=== PATIENT | female | born 1955 | race Caucasian/White ===

== ENCOUNTER 2017-10-12 07:45 | Inpatient (IN) | payer OTHER ==
[2017-10-05 14:17] LABS: BASOPHILS % (AUTO) 0.8 % (0.0-2.0); EOSINOPHILS % (AUTO) 2.9 % (1.0-6.0); HEMATOCRIT 40.4 % (36-46); HEMOGLOBIN 13.7 g/dL (12.0-16.0); LYMPHOCYTES # (AUTO) 3.2 K/uL (1.0-4.8); LYMPHOCYTES % (AUTO) 39.2 % (22.0-44.0); MEAN CORPUSCULAR HGB CONC 33.8 G/dL (31.0-37.0); MEAN CORPUSCULAR VOLUME 89 fL (80-100); MONOCYTES # (AUTO) 0.6 K/uL (0.1-1.0); MONOCYTES % (AUTO) 6.9 % (2.0-9.0); NEUTROPHILS # (AUTO) 4.1 K/uL (1.8-7.7); NEUTROPHILS % (AUTO) 50.2 % (40.0-70.0); PLATELET COUNT (AUTO) 234 K/uL (150-450); RED BLOOD CELL COUNT(AUTO) 4.56 MIL/uL (4.00-5.20); RED CELL DISTRIBUTION WIDTH 13.6 % (11.5-14.5)
[2017-10-05 14:25] LABS: INR 0.9 (0.9-1.1); PROTHROMBIN TIME 9.8 SEC (9.4-11.6)
[2017-10-05 15:17] LABS: CALCIUM, TOTAL 8.9 mg/dL (8.8-10.5); CREATININE 0.95 mg/dL (0.60-1.30); POTASSIUM 4.6 mmol/L (3.5-5.1)
[2017-10-05 15:27] LABS: ALBUMIN 3.8 g/dL (3.4-5.0); BILIRUBIN,TOTAL 0.3 mg/dL (0.1-1.0); TOTAL PROTEIN, SERUM 7.3 g/dL (6.4-8.2)
[~2017-10-12] VITALS: Ht 160 cm; Wt 106.4 kg
[~2017-10-12 07:45] MED LIST: AMLO-511 PO; ASPI81 PO; ATOR40TA28 PO; BACL10TA PO; DULO60CA44 PO; LISI-662 PO; OMEP20 PO; PARO10TA89 PO; RINGERS SOLUTION,LACTATED 1,000 ML IV ONE; SODIUM CHLORIDE 0.9% 50 ML ONE; SODIUM CL IRRIG SOLN BAG 3,000 ML IRRIG ONE; SUCR1TAB PO; TOPI100T37 PO
[2017-10-12] MEDS ORDERED: RINGERS SOLUTION,LACTATED 1,000 ML IV ONE (08:00)
[2017-10-12] MEDS ORDERED: MEPERIDINE-PF 25 MG/ML SYRINGE IVP PRN (08:45)
[2017-10-12] MEDS ORDERED: SODIUM CHLORIDE 0.9% 50 ML ONE (08:49)
[2017-10-12] MEDS ORDERED: CELECOXIB 200 MG CAPSULE ONE (08:54)
[2017-10-12] MEDS ORDERED: ONDANSETRON HCL 4 MG/2 ML VIAL IVP PRN ×2 (09:00→09:15)
[2017-10-12] MEDS ORDERED: ZOLPIDEM TARTRATE 5 MG TABLET PO PRN (09:00)
[2017-10-12] MEDS ORDERED: BUPIVACAINE LIPOSOME/PF 1.3%-13.3MG/ML SUSPENSION 20 ML VIAL INJ ONE (09:00)
[2017-10-12] MEDS ORDERED: TRANEXAMIC ACID 1,000 MG in DEXTROSE 5%-WATER 50 ML IV ONE (09:00)
[2017-10-12] MEDS ORDERED: PROMETHAZINE HCL 25 MG/ML VIAL IM PRN (09:00)
[2017-10-12] MEDS ORDERED: CYCLOBENZAPRINE HCL 10 MG TABLET PO PRN (09:00)
[2017-10-12] MEDS ORDERED: HYDROmorphone 2 MG/ML SYRINGE IVP PRN (09:00)
[2017-10-12] MEDS ORDERED: CELECOXIB 200 MG CAPSULE PO ONE (09:00)
[2017-10-12] MEDS: ACETAMINOPHEN 1000 MG/ISO-OSM 100 ML IV SCH ×3 (09:03→19:48)
[2017-10-12] MEDS ORDERED: DiphenhydrAMINE HCL 50 MG/ML VIAL IVP PRN (09:15)
[2017-10-12] MEDS ORDERED: 0.9% SODIUM CHLORIDE 10 ML SYRINGE IVP PRN (09:15)
[2017-10-12] MEDS ORDERED: BISACODYL 10 MG RECTAL RECTAL SUPPOSITORY PR PRN (09:15)
[2017-10-12] MEDS ORDERED: MAG HYDROX/AL HYDROX/SIMETH 30 ML SUSP UDCUP PO PRN (09:15)
[2017-10-12] MEDS ORDERED: BENZOCAINE/MENTHOL LOZENGE [8 LOZENGES/PACKET] PO PRN (09:15)
[2017-10-12] MEDS: OxyCODONE HCL 5 MG IR TABLET PO SCH ×2 (09:30→15:23)
[2017-10-12] MEDS ORDERED: FentaNYL CITRATE-PF 100 MCG/2 ML VIAL ONE ×3 (12:11→13:02)
[2017-10-12] MEDS: FentaNYL CITRATE-PF 100 MCG/2 ML VIAL IVP PRN ×4 (12:14→12:43)
[2017-10-12] MEDS ORDERED: HYDROmorphone 2 MG/ML SYRINGE ONE ×2 (12:16→13:01)
[2017-10-12] MEDS: HYDROmorphone 2 MG/ML SYRINGE IVP PRN ×7 (12:19→22:19)
[2017-10-12] MEDS ORDERED: PROMETHAZINE HCL 25 MG/ML VIAL ONE (12:20)
[2017-10-12] MEDS ORDERED: HYDROmorphone 2 MG/ML SYRINGE IVP ONE ×2 (12:45→13:15)
[2017-10-12] MEDS ORDERED: MEPERIDINE-PF 25 MG/ML SYRINGE ONE (12:48)
[2017-10-12] MEDS ORDERED: SODIUM CHLORIDE 0.9% 1,000 ML IV ONE (13:00)
[2017-10-12] MEDS ORDERED: FentaNYL CITRATE-PF 100 MCG/2 ML VIAL IVP ONE (13:15)
[2017-10-12] MEDS ORDERED: DIAZEPAM 5 MG/ML 2 ML SYRINGE IVP ONE (13:15)
[2017-10-12] MEDS ORDERED: MIDAZOLAM HCL 2 MG/2 ML VIAL ONE (13:16)
[2017-10-12] MEDS ORDERED: MIDAZOLAM HCL 2 MG/2 ML VIAL IM ONE (13:30)
[2017-10-12] MEDS: MORPHINE SULFATE 15 MG ER TABLET PO SCH (15:22)
[2017-10-12] MEDS: BACLOFEN 10 MG TABLET PO SCH ×2 (15:23→19:48)
[2017-10-12] MEDS: CeFAZolin 1 GM/DEXTROSE 50 ML IV SCH (18:05)
[2017-10-12] MEDS: GABAPENTIN 400 MG CAPSULE PO SCH (19:48)
[2017-10-12] MEDS: PARoxetine HCL 10 MG TABLET PO SCH (19:48)
[2017-10-12 19:58] VITALS: BP 135/77
[2017-10-12] MEDS ORDERED: OXYGEN THERAPY IH SCH (20:00)
[2017-10-12] MEDS: DOCUSATE SODIUM 100 MG CAPSULE PO SCH (20:34)
[2017-10-12] MEDS: OXYGEN THERAPY IH SCH (20:35)
[2017-10-12 23:30] VITALS: BP 119/67
[2017-10-13] VITALS (9 sets, daily range): BP systolic 88–146; BP diastolic 50–83
[2017-10-13] MEDS: OxyCODONE HCL 5 MG IR TABLET PO SCH ×2 (00:58→09:23)
[2017-10-13] MEDS: SODIUM CHLORIDE 0.9% 1,000 ML IV SCH ×2 (01:02→21:46)
[2017-10-13] MEDS: CeFAZolin 1 GM/DEXTROSE 50 ML IV SCH (01:02)
[2017-10-13] MEDS ORDERED: FentaNYL CITRATE-PF 100 MCG/2 ML VIAL IVP ONE (01:51)
[2017-10-13] MEDS ORDERED: HYDROmorphone 2 MG/ML SYRINGE IVP ONE (01:51)
[2017-10-13] MEDS ORDERED: MIDAZOLAM HCL 2 MG/2 ML VIAL IVP ONE (01:51)
[2017-10-13] MEDS ORDERED: 0.9% SODIUM CHLORIDE 10 ML VIAL IVP ONE (01:59)
[2017-10-13] MEDS ORDERED: DEXAMETHASONE SOD PHOS 4 MG/ML VIAL IVP ONE (01:59)
[2017-10-13] MEDS ORDERED: NEOSTIGMINE METHYLSULFATE 1 MG/ML 10 ML VIAL IVP ONE (01:59)
[2017-10-13] MEDS ORDERED: ONDANSETRON HCL 4 MG/2 ML VIAL IVP ONE (01:59)
[2017-10-13] MEDS ORDERED: LIDOCAINE HCL/PF 2% 5 ML VIAL INJ ONE (01:59)
[2017-10-13] MEDS ORDERED: ROCURONIUM BROMIDE 10 MG/ML 5 ML VIAL IVP ONE (01:59)
[2017-10-13] MEDS ORDERED: GLYCOPYRROLATE 0.2 MG/ML VIAL IM ONE (01:59)
[2017-10-13] MEDS ORDERED: PHENYLEPHRINE HCL 10 MG/ML VIAL IVP ONE (01:59)
[2017-10-13] MEDS ORDERED: EPHEDrine SULFATE 50 MG/ML VIAL IM ONE (01:59)
[2017-10-13] MEDS ORDERED: PROPOFOL 1% 20 ML VIAL IVP ONE (01:59)
[2017-10-13] MEDS: ACETAMINOPHEN 1000 MG/ISO-OSM 100 ML IV SCH ×2 (03:20→09:47)
[2017-10-13] MEDS: HYDROmorphone 2 MG/ML SYRINGE IVP PRN ×8 (04:57→20:12)
[2017-10-13 07:00] LABS: BASOPHILS % (AUTO) 0.1 % (0.0-2.0); EOSINOPHILS % (AUTO) 0.1 % (1.0-6.0); HEMATOCRIT 32.7 % (36-46); HEMOGLOBIN 10.9 g/dL (12.0-16.0); LYMPHOCYTES # (AUTO) 1.5 K/uL (1.0-4.8); LYMPHOCYTES % (AUTO) 13.6 % (22.0-44.0); MEAN CORPUSCULAR HEMOGLOBIN 30.1 pg (26.0-34.0); MEAN CORPUSCULAR HGB CONC 33.2 G/dL (31.0-37.0); MEAN CORPUSCULAR VOLUME 90 fL (80-100); MONOCYTES # (AUTO) 0.7 K/uL (0.1-1.0); MONOCYTES % (AUTO) 6.7 % (2.0-9.0); NEUTROPHILS # (AUTO) 8.9 K/uL (1.8-7.7); NEUTROPHILS % (AUTO) 79.5 % (40.0-70.0); PLATELET COUNT (AUTO) 186 K/uL (150-450); RED BLOOD CELL COUNT(AUTO) 3.62 MIL/uL (4.00-5.20); RED CELL DISTRIBUTION WIDTH 13.9 % (11.5-14.5)
[2017-10-13 07:37] LABS: ANION GAP 7 mmol/L (8-16); CALCIUM, TOTAL 8.7 mg/dL (8.8-10.5); CARBON DIOXIDE 27 mmol/L (22-29); CHLORIDE 96 mmol/L (98-107); GLOMERULAR FILTR. RATE CALC > 60 mL/min (>60); GLUCOSE,RANDOM 128 mg/dL (70-110); SODIUM SERUM 130 mmol/L (136-145); UREA NITROGEN, BLOOD 9 mg/dL (7-18)
[2017-10-13] MEDS: BACLOFEN 10 MG TABLET PO SCH ×3 (09:24→20:09)
[2017-10-13] MEDS: AmLODIPine BESYLATE 5 MG TABLET PO SCH (09:24)
[2017-10-13] MEDS: ATORVASTATIN CALCIUM 40 MG TABLET PO SCH (09:24)
[2017-10-13] MEDS: SUCRALFATE 1 GM TABLET PO SCH (09:24)
[2017-10-13] MEDS: DULoxetine HCL 60 MG CAPSULE PO SCH (09:24)
[2017-10-13] MEDS: OMEPRAZOLE 20 MG CAPSULE PO SCH (09:24)
[2017-10-13] MEDS: DOCUSATE SODIUM 100 MG CAPSULE PO SCH ×2 (09:24→20:11)
[2017-10-13] MEDS: TOPIRAMATE 100 MG TABLET PO SCH (09:25)
[2017-10-13] MEDS: LISINOPRIL 20 MG TABLET PO SCH (09:25)
[2017-10-13] MEDS: RIVAROXABAN 10 MG TABLET PO SCH (11:40)
[2017-10-13] MEDS: OxyCODONE HCL/ACETAMINOPHEN 10-325 MG TABLET PO PRN ×2 (16:46→21:40)
[2017-10-13] MEDS: MORPHINE SULFATE 15 MG ER TABLET PO SCH (17:36)
[2017-10-13] MEDS: PARoxetine HCL 10 MG TABLET PO SCH (20:09)
[2017-10-13] MEDS: GABAPENTIN 400 MG CAPSULE PO SCH (20:12)
[2017-10-13] MEDS: OXYGEN THERAPY IH SCH (21:42)
[2017-10-14] VITALS (7 sets, daily range): BP systolic 95–130; BP diastolic 55–95
[2017-10-14] MEDS: HYDROmorphone 2 MG/ML SYRINGE IVP PRN ×3 (05:45→11:00)
[2017-10-14] MEDS: SODIUM CHLORIDE 0.9% 1,000 ML IV SCH ×2 (06:18→14:34)
[2017-10-14] MEDS: DULoxetine HCL 60 MG CAPSULE PO SCH (08:25)
[2017-10-14] MEDS: ATORVASTATIN CALCIUM 40 MG TABLET PO SCH (08:26)
[2017-10-14] MEDS: TOPIRAMATE 100 MG TABLET PO SCH (08:26)
[2017-10-14] MEDS: OMEPRAZOLE 20 MG CAPSULE PO SCH (08:26)
[2017-10-14] MEDS: LISINOPRIL 20 MG TABLET PO SCH (08:26)
[2017-10-14] MEDS: BACLOFEN 10 MG TABLET PO SCH ×3 (08:27→19:55)
[2017-10-14] MEDS: DOCUSATE SODIUM 100 MG CAPSULE PO SCH ×2 (08:27→19:54)
[2017-10-14] MEDS: AmLODIPine BESYLATE 5 MG TABLET PO SCH (08:27)
[2017-10-14] MEDS: OxyCODONE HCL/ACETAMINOPHEN 10-325 MG TABLET PO PRN ×3 (08:36→19:54)
[2017-10-14 09:45] LABS: BASOPHILS # (AUTO) 0.05 K/uL (0.00-0.20); BASOPHILS % (AUTO) 0.5 % (0.0-2.0); EOSINOPHILS # (AUTO) 0.19 K/uL (0.00-0.70); HEMATOCRIT 28.9 % (36-46); HEMOGLOBIN 10.6 g/dL (12.0-16.0); LYMPHOCYTES % (AUTO) 18.9 % (22.0-44.0); MEAN CORPUSCULAR HEMOGLOBIN 33.5 pg (26.0-34.0); MEAN CORPUSCULAR HGB CONC 36.8 G/dL (31.0-37.0); MEAN CORPUSCULAR VOLUME 91 fL (80-100); MONOCYTES # (AUTO) 0.8 K/uL (0.1-1.0); MONOCYTES % (AUTO) 7.7 % (2.0-9.0); NEUTROPHILS # (AUTO) 7.5 K/uL (1.8-7.7); NEUTROPHILS % (AUTO) 71.2 % (40.0-70.0); PLATELET COUNT (AUTO) 154 K/uL (150-450); RED BLOOD CELL COUNT(AUTO) 3.18 MIL/uL (4.00-5.20); RED CELL DISTRIBUTION WIDTH 13.9 % (11.5-14.5)
[2017-10-14] MEDS: SUCRALFATE 1 GM TABLET PO SCH (10:50)
[2017-10-14] MEDS ORDERED: HydrALAZINE HCL 20 MG/ML VIAL IVP PRN (15:30)
[2017-10-14] MEDS: MORPHINE SULFATE 15 MG ER TABLET PO SCH (16:02)
[2017-10-14] MEDS: PARoxetine HCL 10 MG TABLET PO SCH (19:54)
[2017-10-14] MEDS: GABAPENTIN 400 MG CAPSULE PO SCH (19:54)
[2017-10-14] MEDS: OXYGEN THERAPY IH SCH ×2 (19:55→20:00)
[2017-10-14] MEDS: RIVAROXABAN 10 MG TABLET PO SCH (21:39)
[2017-10-15] MEDS: OxyCODONE HCL/ACETAMINOPHEN 10-325 MG TABLET PO PRN ×4 (02:06→11:07)
[2017-10-15 03:42] VITALS: BP 117/54
[2017-10-15] MEDS: SODIUM CHLORIDE 0.9% 1,000 ML IV SCH (03:54)
[2017-10-15 06:32] LABS: BASOPHILS % (AUTO) 0.5 % (0.0-2.0); EOSINOPHILS % (AUTO) 2.3 % (1.0-6.0); HEMATOCRIT 25.7 % (36-46); HEMOGLOBIN 8.9 g/dL (12.0-16.0); LYMPHOCYTES # (AUTO) 1.7 K/uL (1.0-4.8); MEAN CORPUSCULAR HEMOGLOBIN 30.3 pg (26.0-34.0); MEAN CORPUSCULAR HGB CONC 34.4 G/dL (31.0-37.0); MEAN CORPUSCULAR VOLUME 88 fL (80-100); MONOCYTES # (AUTO) 0.7 K/uL (0.1-1.0); MONOCYTES % (AUTO) 8.6 % (2.0-9.0); NEUTROPHILS # (AUTO) 5.8 K/uL (1.8-7.7); NEUTROPHILS % (AUTO) 68.6 % (40.0-70.0); PLATELET COUNT (AUTO) 153 K/uL (150-450); RED BLOOD CELL COUNT(AUTO) 2.93 MIL/uL (4.00-5.20); RED CELL DISTRIBUTION WIDTH 13.4 % (11.5-14.5)
[2017-10-15 07:56] VITALS: BP 105/48
[2017-10-15] MEDS: OXYGEN THERAPY IH SCH (08:00)
[2017-10-15] MEDS: BACLOFEN 10 MG TABLET PO SCH (08:18)
[2017-10-15] MEDS: ATORVASTATIN CALCIUM 40 MG TABLET PO SCH (08:18)
[2017-10-15] MEDS: DULoxetine HCL 60 MG CAPSULE PO SCH (08:18)
[2017-10-15] MEDS: DOCUSATE SODIUM 100 MG CAPSULE PO SCH (08:18)
[2017-10-15] MEDS: SUCRALFATE 1 GM TABLET PO SCH (08:19)
[2017-10-15] MEDS: TOPIRAMATE 100 MG TABLET PO SCH (08:19)
[2017-10-15] MEDS: OMEPRAZOLE 20 MG CAPSULE PO SCH (08:19)
[2017-10-15] MEDS: HYDROmorphone 2 MG/ML SYRINGE IVP PRN (11:04)
[2017-10-15] MEDS ORDERED: RIVA10 PO (12:07)
[2017-10-15 13:15] VITALS: BP 96/51
== END 2017-10-15 14:45 | disposition home health service (06) | DRG 302 ==
LOC: 6N 07:45 → 4E 11:19
PROVIDERS: ADMIT Orthopaedic Surgery; ATTEND Orthopaedic Surgery
PROC: 0SRD0J9 Replacement of Left Knee Joint with Synthetic Substitute, Cemented, Open Approach (ICD-10-PCS; principal; 2017-10-12 10:00)
DX: M17.12 Unilateral primary osteoarthritis, left knee (principal); I11.0 Hypertensive heart disease with heart failure; I50.30 Unspecified diastolic (congestive) heart failure; K29.70 Gastritis, unspecified, without bleeding; E78.5 Hyperlipidemia, unspecified; I25.10 Atherosclerotic heart disease of native coronary artery without angina pectoris; M21.162 Varus deformity, not elsewhere classified, left knee; G47.33 Obstructive sleep apnea (adult) (pediatric); Z90.710 Acquired absence of both cervix and uterus; Z95.5 Presence of coronary angioplasty implant and graft; Z88.6 Allergy status to analgesic agent; Z79.899 Other long term (current) drug therapy
CPT/HCPCS: 87081; 88300; 93005; 97110; 97116; 97161; 97165; 97530; 97535; C9290; J0131; J0690; J1100; J1170; J2175; J2250; J2370; J2405; J2550; J2704; J3010; J3490; J7030; J7050; J7060; J7120

== ENCOUNTER 2018-03-15 05:36 | Inpatient (IN) | payer OTHER ==
[~2018-03-15] VITALS: Ht 160 cm; Wt 115.1 kg
[~2018-03-15 05:36] MED LIST changes: +ATEN25TA PO; +GABA-533 PO; +MORP15 PO; +PERCT10 PO; -RINGERS SOLUTION,LACTATED 1,000 ML IV ONE; -SODIUM CHLORIDE 0.9% 50 ML ONE; -SODIUM CL IRRIG SOLN BAG 3,000 ML IRRIG ONE
[2018-03-15] MEDS ORDERED: RINGERS SOLUTION,LACTATED 0 ML IV ONE (05:42)
[2018-03-15] MEDS ORDERED: RINGERS SOLUTION,LACTATED 1,000 ML IV ONE ×2 (06:00→09:46)
[2018-03-15] MEDS ORDERED: SODIUM CHLORIDE 0.9% 10 ML ONE (06:31)
[2018-03-15] MEDS ORDERED: BACITRACIN 50,000 UNITS/VIAL ONE (06:31)
[2018-03-15] MEDS ORDERED: SODIUM CL IRRIG SOLN BAG 3,000 ML IRRIG ONE (06:32)
[2018-03-15] MEDS ORDERED: BUPIVACAINE HCL/PF 0.5% 30 ML VIAL ONE ×2 (06:55→06:59)
[2018-03-15] MEDS ORDERED: SODIUM CHLORIDE 0.9% 0 ML ONE (06:55)
[2018-03-15] MEDS ORDERED: ACETAMINOPHEN 1000 MG/ISO-OSM 100 ML IV ONE (06:56)
[2018-03-15] MEDS ORDERED: CELECOXIB 200 MG CAPSULE ONE (06:56)
[2018-03-15] MEDS ORDERED: TRANEXAMIC ACID 1,000 MG in DEXTROSE 5%-WATER 50 ML IV ONE (07:00)
[2018-03-15] MEDS ORDERED: BUPIVACAINE LIPOSOME/PF 1.3%-13.3MG/ML SUSPENSION 20 ML VIAL INJ ONE (07:00)
[2018-03-15] MEDS ORDERED: SODIUM CHLORIDE 0.45% 1,000 ML IV SCH (07:16)
[2018-03-15] MEDS ORDERED: BENZOCAINE/MENTHOL LOZENGE PO PRN (07:30)
[2018-03-15] MEDS ORDERED: BISACODYL 10 MG RECTAL RECTAL SUPPOSITORY PR PRN (07:30)
[2018-03-15] MEDS ORDERED: ONDANSETRON HCL 4 MG/2 ML VIAL IVP PRN ×2 (07:30→09:15)
[2018-03-15] MEDS ORDERED: DiphenhydrAMINE HCL 50 MG/ML VIAL IVP PRN (07:30)
[2018-03-15] MEDS ORDERED: OXYGEN THERAPY IH SCH ×2 (08:00→10:00)
[2018-03-15] MEDS ORDERED: LABETALOL HCL 5 MG/ML 20 ML VIAL IVP PRN (09:15)
[2018-03-15] MEDS ORDERED: HydrALAZINE HCL 20 MG/ML VIAL IVP PRN (09:15)
[2018-03-15] MEDS ORDERED: MORPHINE SULFATE 4 MG/ML SYRINGE IVP PRN (09:15)
[2018-03-15] MEDS ORDERED: MEPERIDINE HCL/PF 25 MG/0.5 ML AMP IVP PRN (09:15)
[2018-03-15] MEDS ORDERED: SODIUM CHLORIDE 0.9% 100 ML ONE (09:39)
[2018-03-15] MEDS ORDERED: HYDROmorphone 2 MG/ML SYRINGE ONE (09:53)
[2018-03-15] MEDS: HYDROmorphone 2 MG/ML SYRINGE IVP PRN ×7 (09:59→21:14)
[2018-03-15] MEDS ORDERED: FentaNYL CITRATE-PF 100 MCG/2 ML VIAL ONE (10:08)
[2018-03-15] MEDS: FentaNYL CITRATE-PF 100 MCG/2 ML VIAL IVP PRN ×4 (10:11→10:47)
[2018-03-15] MEDS ORDERED: MIDAZOLAM HCL 2 MG/2 ML VIAL IVP ONE (10:15)
[2018-03-15 11:26] VITALS: BP 112/71
[2018-03-15] MEDS ORDERED: ONDANSETRON HCL 4 MG/2 ML VIAL IVP ONE (12:00)
[2018-03-15] MEDS ORDERED: DEXAMETHASONE SOD PHOS 4 MG/ML VIAL IVP ONE (12:00)
[2018-03-15] MEDS ORDERED: PROPOFOL 1% 20 ML VIAL IVP ONE (12:00)
[2018-03-15] MEDS ORDERED: KETAMINE HCL 50 MG/ML 10 ML VIAL IVP ONE (12:00)
[2018-03-15] MEDS ORDERED: LIDOCAINE HCL/PF 2% 5 ML VIAL INJ ONE (12:00)
[2018-03-15] MEDS ORDERED: PHENYLEPHRINE HCL 10 MG/ML VIAL IVP ONE (12:00)
[2018-03-15] MEDS ORDERED: FentaNYL CITRATE-PF 100 MCG/2 ML VIAL IVP ONE (12:00)
[2018-03-15 14:20] VITALS: BP 139/71
[2018-03-15] MEDS ORDERED: SODIUM CHLORIDE 0.9% 500 ML IV ONE (14:24)
[2018-03-15] MEDS: ACETAMINOPHEN 1000 MG/ISO-OSM 100 ML IV SCH ×2 (14:29→19:05)
[2018-03-15] MEDS: ATORVASTATIN CALCIUM 40 MG TABLET PO SCH (14:30)
[2018-03-15] MEDS: LISINOPRIL 20 MG TABLET PO SCH (14:30)
[2018-03-15] MEDS: DOCUSATE SODIUM 100 MG CAPSULE PO SCH ×2 (14:30→19:59)
[2018-03-15] MEDS: AmLODIPine BESYLATE 5 MG TABLET PO SCH (14:30)
[2018-03-15] MEDS: DULoxetine HCL 60 MG CAPSULE PO SCH (14:31)
[2018-03-15] MEDS: ATENOLOL 25 MG TABLET PO SCH (14:31)
[2018-03-15] MEDS: OMEPRAZOLE 20 MG CAPSULE PO SCH ×2 (14:32→20:00)
[2018-03-15] MEDS: TOPIRAMATE 100 MG TABLET PO SCH (14:32)
[2018-03-15] MEDS: GABAPENTIN 400 MG CAPSULE PO SCH ×3 (14:33→20:00)
[2018-03-15] MEDS: CeFAZolin 1 GM/DEXTROSE 50 ML IV SCH ×2 (16:42→22:16)
[2018-03-15 19:36] VITALS: BP 93/52
[2018-03-15] MEDS: CELECOXIB 200 MG CAPSULE PO SCH (19:59)
[2018-03-15] MEDS: PARoxetine HCL 10 MG TABLET PO SCH (20:00)
[2018-03-15 21:16] VITALS: BP 96/46
[2018-03-15 22:20] VITALS: BP 91/46
[2018-03-15 23:30] VITALS: BP 96/40
[2018-03-16] VITALS (7 sets, daily range): BP systolic 96–128; BP diastolic 49–65
[2018-03-16] MEDS: OxyCODONE HCL 10 MG ER TABLET PO PRN ×2 (00:14→12:43)
[2018-03-16] MEDS: ACETAMINOPHEN 1000 MG/ISO-OSM 100 ML IV SCH ×2 (00:15→06:21)
[2018-03-16] MEDS: HYDROmorphone 2 MG/ML SYRINGE IVP PRN ×3 (03:13→10:27)
[2018-03-16] MEDS: SUCRALFATE 1 GM TABLET PO SCH (06:22)
[2018-03-16 06:30] LABS: BASOPHILS % (AUTO) 0.6 % (0.0-2.0); EOSINOPHILS % (AUTO) 2.3 % (1.0-6.0); HEMATOCRIT 28.5 % (36-46); LYMPHOCYTES % (AUTO) 30.1 % (22.0-44.0); MEAN CORPUSCULAR HEMOGLOBIN 29.4 pg (26.0-34.0); MEAN CORPUSCULAR HGB CONC 35.1 G/dL (31.0-37.0); MEAN CORPUSCULAR VOLUME 84 fL (80-100); MONOCYTES # (AUTO) 0.7 K/uL (0.1-1.0); NEUTROPHILS # (AUTO) 3.8 K/uL (1.8-7.7); PLATELET COUNT (AUTO) 143 K/uL (150-450); RED CELL DISTRIBUTION WIDTH 15.1 % (11.5-14.5)
[2018-03-16 07:01] LABS: ANION GAP 7 mmol/L (8-16); CALCIUM, TOTAL 7.9 mg/dL (8.8-10.5); CARBON DIOXIDE 26 mmol/L (22-29); CHLORIDE 101 mmol/L (98-107); CREATININE 0.79 mg/dL (0.60-1.30); GLOMERULAR FILTR. RATE CALC > 60 mL/min (>60); GLUCOSE,RANDOM 98 mg/dL (70-110); POTASSIUM 3.6 mmol/L (3.5-5.1); SODIUM SERUM 134 mmol/L (136-145); UREA NITROGEN, BLOOD 9 mg/dL (7-18)
[2018-03-16] MEDS: ATORVASTATIN CALCIUM 40 MG TABLET PO SCH (08:47)
[2018-03-16] MEDS: DOCUSATE SODIUM 100 MG CAPSULE PO SCH ×2 (08:48→19:51)
[2018-03-16] MEDS: GABAPENTIN 400 MG CAPSULE PO SCH ×3 (08:48→19:52)
[2018-03-16] MEDS: DULoxetine HCL 60 MG CAPSULE PO SCH (08:49)
[2018-03-16] MEDS: OMEPRAZOLE 20 MG CAPSULE PO SCH ×2 (08:49→19:53)
[2018-03-16] MEDS: CELECOXIB 200 MG CAPSULE PO SCH ×2 (08:50→19:53)
[2018-03-16] MEDS: TOPIRAMATE 100 MG TABLET PO SCH (08:51)
[2018-03-16] MEDS: CYCLOBENZAPRINE HCL 10 MG TABLET PO PRN ×2 (08:51→19:51)
[2018-03-16] MEDS: LISINOPRIL 20 MG TABLET PO SCH (09:00)
[2018-03-16] MEDS: ATENOLOL 25 MG TABLET PO SCH (09:00)
[2018-03-16] MEDS: AmLODIPine BESYLATE 5 MG TABLET PO SCH (09:00)
[2018-03-16] MEDS ORDERED: RIVAROXABAN 10 MG TABLET PO SCH ×3 (09:00→17:30)
[2018-03-16] MEDS: OxyCODONE HCL/ACETAMINOPHEN 10-325 MG TABLET PO PRN ×3 (16:14→23:18)
[2018-03-16] MEDS: FERROUS SULFATE 325 MG EC TABLET PO SCH (18:03)
[2018-03-16] MEDS: PARoxetine HCL 10 MG TABLET PO SCH (19:53)
[2018-03-17] MEDS: OxyCODONE HCL 10 MG ER TABLET PO PRN (03:08)
[2018-03-17 03:18] VITALS: BP 121/56
[2018-03-17] MEDS: SUCRALFATE 1 GM TABLET PO SCH (05:59)
[2018-03-17 06:28] LABS: BASOPHILS % (AUTO) 0.6 % (0.0-2.0); EOSINOPHILS % (AUTO) 6.7 % (1.0-6.0); HEMATOCRIT 26.4 % (36-46); HEMOGLOBIN 9.6 g/dL (12.0-16.0); LYMPHOCYTES # (AUTO) 1.7 K/uL (1.0-4.8); LYMPHOCYTES % (AUTO) 25.3 % (22.0-44.0); MEAN CORPUSCULAR HEMOGLOBIN 30.5 pg (26.0-34.0); MEAN CORPUSCULAR HGB CONC 36.5 G/dL (31.0-37.0); MEAN CORPUSCULAR VOLUME 84 fL (80-100); MONOCYTES # (AUTO) 0.8 K/uL (0.1-1.0); MONOCYTES % (AUTO) 12.1 % (2.0-9.0); NEUTROPHILS # (AUTO) 3.8 K/uL (1.8-7.7); NEUTROPHILS % (AUTO) 55.3 % (40.0-70.0); PLATELET COUNT (AUTO) 119 K/uL (150-450); RED BLOOD CELL COUNT(AUTO) 3.16 MIL/uL (4.00-5.20); RED CELL DISTRIBUTION WIDTH 14.8 % (11.5-14.5)
[2018-03-17 07:51] VITALS: BP 105/59
[2018-03-17] MEDS: CELECOXIB 200 MG CAPSULE PO SCH (08:19)
[2018-03-17] MEDS: LISINOPRIL 20 MG TABLET PO SCH (08:19)
[2018-03-17] MEDS: DOCUSATE SODIUM 100 MG CAPSULE PO SCH (08:19)
[2018-03-17] MEDS: AmLODIPine BESYLATE 5 MG TABLET PO SCH (08:19)
[2018-03-17] MEDS: DULoxetine HCL 60 MG CAPSULE PO SCH (08:20)
[2018-03-17] MEDS: FERROUS SULFATE 325 MG EC TABLET PO SCH (08:20)
[2018-03-17] MEDS: ATORVASTATIN CALCIUM 40 MG TABLET PO SCH (08:20)
[2018-03-17] MEDS: OxyCODONE HCL/ACETAMINOPHEN 10-325 MG TABLET PO PRN (08:20)
[2018-03-17] MEDS: OMEPRAZOLE 20 MG CAPSULE PO SCH (08:20)
[2018-03-17] MEDS: GABAPENTIN 400 MG CAPSULE PO SCH (08:20)
[2018-03-17] MEDS ORDERED: RIVA10 PO (10:39)
[2018-03-17 10:55] VITALS: BP 115/68
[2018-03-17] MEDS: CYCLOBENZAPRINE HCL 10 MG TABLET PO PRN (10:57)
== END 2018-03-17 11:28 | disposition home health service (06) | DRG 302 ==
LOC: 4E 05:36
PROVIDERS: ADMIT Orthopaedic Surgery; ATTEND Orthopaedic Surgery
PROC: 3E0T3BZ Introduction of Anesthetic Agent into Peripheral Nerves and Plexi, Percutaneous Approach (ICD-10-PCS; 2018-03-15)
PROC: 0SRC0J9 Replacement of Right Knee Joint with Synthetic Substitute, Cemented, Open Approach (ICD-10-PCS; principal; 2018-03-15 07:30)
DX: M17.11 Unilateral primary osteoarthritis, right knee (principal); E87.1 Hypo-osmolality and hyponatremia; I10 Essential (primary) hypertension; Z68.41 Body mass index [BMI] 40.0-44.9, adult; E66.01 Morbid (severe) obesity due to excess calories; G47.33 Obstructive sleep apnea (adult) (pediatric); G89.29 Other chronic pain; F32.9 Major depressive disorder, single episode, unspecified; D64.9 Anemia, unspecified; E78.00 Pure hypercholesterolemia, unspecified; Z96.652 Presence of left artificial knee joint; E78.5 Hyperlipidemia, unspecified; K21.9 Gastro-esophageal reflux disease without esophagitis; M21.261 Flexion deformity, right knee; Z90.710 Acquired absence of both cervix and uterus; Z88.8 Allergy status to other drugs, medicaments and biological substances; Z79.899 Other long term (current) drug therapy; Z87.891 Personal history of nicotine dependence; Z80.9 Family history of malignant neoplasm, unspecified
CPT/HCPCS: 87081; 88300; 93005; 97110; 97116; 97162; 97166; 97530; 97535; C9290; G0238; J0131; J0690; J1100; J1170; J2250; J2370; J2405; J2704; J3010; J3490; J7040; J7050; J7060; J7120